=== PATIENT | female | born 1995 | race Caucasian/White ===

== ENCOUNTER 2016-11-22 12:10 | Observation (INO) | payer OTHER ==
[2016-11-22] MEDS ORDERED: Lorazepam 2 MG/ML VIAL ONE (12:38)
[2016-11-22] MEDS ORDERED: Metoclopramide HCl 10 MG/2 ML VIAL ONE (12:39)
[2016-11-22] MEDS ORDERED: Acetaminophen 500 MG TAB ONE (12:39)
[2016-11-22] MEDS ORDERED: diphenhydrAMINE HCl 50 MG/ML 1 ML VIAL ONE (12:39)
--- NOTE | 2016-11-22 13:36 | CT ---
CTA BRAIN: HISTORY: Severe headache. TECHNIQUE: Noncontrast enhanced CT images of the brain are obtained, followed by contrast enhanced CTA images, and 2D and 3D reconstructed images were performed on an independent 3D work station. FINDINGS: Images demonstrate no evidence of intracranial hemorrhage. The right and left internal carotid arteries are unremarkable. The right and left middle cerebral a rteries are unremarkable. In the A2 branches of the anterior cerebral artery, there appears to be an area of caliber change wi thin a few millimeters of its origin. This may represent a possible area of vasospasm. More distal ly, the JENNIFER vessels are unremarkable. There is an area of caliber change in the proximal and mid basilar artery. In addition, there is al so significant caliber change in the P2 segments of the posterior cerebral artery bilaterally. Thes e may represent additional areas of possible vasospasm. No evidence of aneurysms or hemorrhages seen. IMPRESSION: Anterior and posterior communicating artery areas of caliber change, possibly representing areas of vasospasm. Findings discussed with Dr. Wilkinson at 1:19 p.m. on 11/22/2016. CODE CR POS: [facility]
[2016-11-22 14:02] LABS: #Lymphocytes 1.1 thou/uL (1.20-3.40); #Monocytes 0.5 thou/uL (0.11-0.59); #Neutrophils 4.5 thou/uL (1.40-6.50); %Basophils 0.4 % (0.0-1.0); %Eosinophils 0.6 % (0.0-10.0); %Lymphocytes 17.5 % (21.0-51.0); Hematocrit 38.3 % (36.0-47.0); Mean Platelet Volume 7.5 fL (7.4-10.4); Red Blood Cell (RBC) Count 4.19 mill/uL (4.20-5.40); White Blood Cell (WBC) Count 6.1 thou/uL (4.8-10.8)
[2016-11-22 14:19] LABS: Anion Gap 13 mmol/L (10-20); BUN (Urea Nitrogen) 10 mg/dL (7.0-18.7); Calc. Creatinine Clearance 0 mL/min (70-130); Calcium 8.7 mg/dL (7.8-10.44); Carbon Dioxide 20 mmol/L (22-29); Chloride 106 mmol/L (98-107); Estimated GFR-MDRD Greater than 90
[2016-11-22 16:28] VITALS: BMI 19.4
[2016-11-22] MEDS ORDERED: Ondansetron ODT 4 MG TAB SL PRN (16:34)
[2016-11-22] MEDS ORDERED: Sodium Chloride 0.9% 1,000 ML IV SCH (16:34)
[2016-11-22] MEDS ORDERED: Ondansetron HCl/PF 4 MG/2 ML Vial IVP PRN (16:34)
[2016-11-22] MEDS ORDERED: ISOVUE-370 76%-LOCM 1 ML ONE (16:35)
[2016-11-22] MEDS ORDERED: FLU VACC QS2017-18 36 mo. & older 0.5 ML SYRINGE IM ONE (16:45)
[2016-11-22] MEDS ORDERED: diphenhydrAMINE HCl 50 MG/ML 1 ML VIAL IVP PRN (16:50)
[2016-11-22] MEDS ORDERED: HYDROcodone/Acetaminophen 5/325 mg Tablet PO PRN (16:50)
[2016-11-22] MEDS ORDERED: Calcium Carbonate 500 MG ChewTAB PO PRN (16:50)
[2016-11-22] MEDS ORDERED: Acetaminophen 325 MG TAB PO PRN (16:50)
[2016-11-22] MEDS: HYDROcodone/Acetaminophen 5/325 mg Tablet PO PRN ×2 (17:41→21:26)
[2016-11-22] MEDS: Sodium Chloride 0.9% 1,000 ML IV SCH (17:42)
--- NOTE | 2016-11-22 18:21 | HP ---
DATE OF OBSERVATION PLACEMENT: 11/22/2016 PRIMARY CARE PHYSICIAN: Toño mixon. REASON FOR OBSERVATION PLACEMENT: Headache. HISTORY OF PRESENT ILLNESS: Ms. Breana Small is a 21-year-old female with no significant past medi patricia history, who presents to the emergency room complaining of a headache, which initially began 3 d ays ago. She states that the headache is band-like in nature, radiating down to her neck. She stat es that pounding in nature, 8/10 at its worst. She states she has intermittently taken ibuprofen, w hich has helped her minimally. She denies any trauma to the head, denies any blurry vision or doubl e vision. She does have phonophobia and photophobia. No fevers have been noted. No numbness or ti ngling in any of her extremities. There have been no changes in sleep pattern, excessive caffeine u se. The patient then presented to the emergency room where she was given IV Reglan as well as Ativa n and intravenous fluids and Tylenol after which the headache mildly improved. She then underwent a CT [place] of [place] angio, which stated that there may be areas of vasospasm, particularly in the a nterior and posterior communicating arteries due to showing of areas of caliber change. She states she has never had this kind of pain before. There has been no history of aneurysms as a child. No family history of aneurysms. She denies any change in her urinary habits. She has been placed into observation onto the stroke floor for further evaluation. Currently, she still has a headache; how ever, this is mildly than her presentation. PAST MEDICAL HISTORY: Reviewed and noncontributory. PAST SURGICAL HISTORY: Reviewed and noncontributory. CODE STATUS: FULL CODE. SOCIAL HISTORY: The patient denies any cigarette use. She does smoke marijuana occasionally and sh e socially drinks. MEDICATIONS: Reviewed and none. ALLERGIES: SULFA and ZAIDA. FAMILY HISTORY: No history of aneurysms. Her great-grandmother had a CVA. REVIEW OF SYSTEMS: The following complete review of systems was negative, unless otherwise mentione d in the HPI or below: Constitutional: Weight loss or gain, sense of well-being, ability to conduct usual activities, exer cise tolerance. Skin/Breast: Rash, itching, changes in hair growth or loss, nail changes, breast lumps, tenderness, swelling, nipple discharge. Eyes: Vision, double vision, tearing, blind spots, pain. ENT/Mouth: Headaches (location, time of onset, duration, precipitating factors), vertigo, lighthead edness, injury. Vision, double vision, tearing, blind spots, pain, nose bleeding, colds, obstruction , discharge, dental difficulties, gingival bleeding, dentures, neck stiffness, pain, tenderness, mas ses in thyroid or other areas. Cardiovascular: Precordial pain, substernal distress, palpitations, syncope, dyspnea on exertion, o rthopnea, nocturnal paroxysmal dyspnea, edema, cyanosis, hypertension, heart murmurs, varicosities, phlebitis, claudication. Respiratory: Pain, shortness of breath, wheezing, stridor, cough, hemoptysis, fever or night sweats . Gastrointestinal: Poor appetite, dysphagia, indigestion, abdominal pain, heartburn, eructation, celia sea, vomiting, hematemesis, jaundice, constipation, or diarrhea, abnormal stools (ramon-colored, ankur y, bloody, greasy, foul smelling), flatulence, hemorrhoids, recent changes in bowel habits. Genitourinary: Urgency, frequency, dysuria, nocturia, hematuria, polyuria, oliguria, unusual (or ch elliott in) color of urine, stones, hesitancy, change in size of stream, dribbling, acute retention or incontinence, libido, potency. Musculoskeletal: Pain, swelling, redness or heat of muscles or joints, limitation, of motion, muscu lar weakness, atrophy, cramps. Neurologic/Psychiatric: Convulsions, paralyses, tremor, incoordination, paresthesias, difficulties with memory of speech, sensory or motor disturbances, or muscular coordination (ataxia, tremor), emo tional problems, anxiety, depression, previous psychiatric care, unusual perceptions, hallucinations . Allergy/Immunologic: Skin rash, anemia, bleeding tendency, polydipsia, polyuria, intolerance to hea t or cold. PHYSICAL EXAMINATION: CONSTITUTIONAL/VITAL SIGNS: Blood pressure 121/68, pulse is 70, temperature is 98.1, respirations a re 20, O2 saturation 98% on room air. GENERAL: She is nontoxic appearing. HEENT: Examination eyes show pupils that are reactive. Extraocular muscles are intact. Oral: Juan st oral mucosa. No lesions RESPIRATORY: Equal chest wall expansion. No wheezing, rhonchi, or rales. CARDIOVASCULAR: S1, S2 present. No murmurs, gallops or rubs. GASTROINTESTINAL: Soft, nontender, nondistended. Bowel sounds are present in all 4 quadrants. MUSCULOSKELETAL: Good range of motion in all 4 extremities. No clubbing, no cyanosis. LYMPHATICS: No swollen or painful cervical or axillary lymph nodes. NEUROLOGIC: She does have some neck stiffness; however, it is supple and has good range of motion. No meningeal signs. Pronator drift is absent. [id number] is intact. PSYCHIATRIC: Awake, alert, and oriented to time, place, person, answers questions appropriately. SKIN: Normal skin turgor. LABORATORY AND X-RAY FINDINGS: Laboratory values taken in the emergency room and reviewed by me roman wed WBC of 6.1, hemoglobin 13.0, hematocrit 38.3, platelet count 166,000. ESR is less than 1. Chem istry shows a CRP less than 0.5. Serum is negative. Sodium is 135, potassium 3.5, chlori de 106, carbon dioxide 20, anion gap 13, BUN is 10, creatinine 0.73. CT [place] of [place] angio with contrast revealed no evidence of intracranial hemorrhage, the right a nd left internal carotids are unremarkable. There is no evidence of aneurysm or hemorrhage is seen; however, there is an anterior and posterior communicating arteries with areas of caliber change, po ssibly representing areas of vasospasm. ASSESSMENT AND PLAN: Ms. Breana Small is a 21-year-old female with no significant past medical his tory, who presents to the emergency room complaining of a headache. 1. Headache, possibly secondary to cerebral vasospasm. At this time, the patient will be placed in observation onto the stroke floor. We will institute neuro checks. We will start the patient on I V fluids as well as some analgesics p.r.n. I spoke with the neurologist operational intelligence analyst who recommended get ting an MRI of the brain, as well as an MRV of the head to rule out venous sinus thrombosis. This w ill be performed stat and her further treatment options will be done based of these results. At thi s time, we would avoid any NSAIDS or any aspirin. 2. IV fluids. 3. Regular diet. 4. P.r.n. order set. 5. Full code. 6. Deep venous thrombosis prophylaxis. 7. I explained all this to the patient at bedside. I have also explained that she may require calc ium channel blockers for possible treatment; however, we will need CT results of her imaging first. 8. The patient's further hospital stay by her clinical course while here. I explained all this to the patient at bedside. She is agreeable to the plan of treatment. All questions have been answergustavo taylor
--- NOTE | 2016-11-22 19:47 | CON ---
DATE OF CONSULTATION: 11/22/2016 REASON FOR CONSULTATION: Severe intractable headache, neck stiffness. HISTORY OF PRESENT ILLNESS: Ms. Small is a pleasant 21-year-old female who has been cons idered for evaluation of severe intractable headache and neck stiffness. The patient reports that o n morning, she started noticing holocranial headache with nausea, vomiting, and neck stiffn ess. She continued to have headache, nausea and vomiting throughout the day on as well as Tuesday. She notes that the vomiting subsided on Tuesday. However, she continued to have severe 11/23 headache that was holocranial and radiated to the neck. She also felt neck stiffness. She was not able to move her neck side to side as it was causing severe pain. She also had photop hobia, phonophobia with headaches. There was no lightheadedness, dizziness, numbness, tingling, wea kness, dysarthria, dysphagia or difficulty with balance with this episode. She notes that the sympt oms continued to not improve, she decided to present to the [facility] for further ev aluation on today. On arrival here, she had a CT angiogram of the head done which showed vasospasms of the anterior and posterior communicating arteries. There was no evidence of aneurysm or hemorrh ages were seen. 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 She does complain of having noted increasing diaphoresis during this time. PAST MEDICAL HISTORY: None significant. PAST SURGICAL HISTORY: None significant. SOCIAL HISTORY: She denies smoking. She does report of alcohol use. She denies illicit drug use. She volunteers at a longterm. FAMILY HISTORY: Significant for mother, maternal grandmother and brother with a history of migraine s. CURRENT MEDICATIONS: None. ALLERGIES: Include SULFA DRUGS. REVIEW OF SYSTEMS: As mentioned above in history of present illness, otherwise negative. PHYSICAL EXAMINATION: VITAL SIGNS: Blood pressure of 121/68, pulse of 70, temperature of 98.1, respirations are 20, O2 sa ts of 98% on room air. GENERAL: Well-developed and well-nourished female in no apparent distress. RESPIRATORY: Clear to auscultation bilaterally. CARDIOVASCULAR: Regular rate and rhythm. NEUROLOGIC: Mental status: The patient is awake, alert, and oriented x3. Speech and language: Fl uent speech. Cranial nerves: Pupils are 3 mm and reactive. Visual lira are intact. External mu scles are intact. No nystagmus is noted. Face is symmetric. Tongue and uvula are midline. Motor exam showed normal tone and bulk with 5/5 strength in both upper and lower extremities. She does sierra ve positive Kernig sign and positive Brudzinski sign on the left lower extremity. Sensory: Sensati on is intact and symmetric. Deep tendon reflexes 2+ reflexes in both upper and lower extremities. Plantar response is flexion bilaterally. Coordination intact to [id number] tapping bilatera lly. LABORATORY DATA: Reviewed, which included CBC, BMP, CRP and urine test and sedimentation rate, which is significant for sodium 135, otherwise unremarkable. IMAGING STUDIES: CT angiogram of the head was reviewed, the findings are as noted on the HPI. IMPRESSION: 1. Severe intractable headache. 2. Vasospasm of intracranial arteries. 3. Neck stiffness. ASSESSMENT AND PLAN: Ms. Small is a pleasant 21-year-old female who presented with sever e intractable headaches since morning along with nausea, vomiting, neck stiffness, and diap horesis. I have reviewed her CT angiogram of the head results. I have discussed these findings wit h Dr. Delgado as well. At this time, I would recommend obtaining MRI brain with and without contrast and MRV head for further evaluation. I will also recommend obtaining lumbar puncture to rule out ce ntral intracranial hemorrhage that can cause her ongoing symptoms. I will give her a trial of Depac on IV 500 mg 12 hours x2 doses to see if that helps to alleviate her headaches. I will follow up results of MRI and MRV and provide further recommendations at that time. Thank you for your consultation.
[2016-11-22] MEDS: Valproate Sodium 500 MG in Sodium Chloride 0.9% 100 ML IVPB SCH (19:56)
--- NOTE | 2016-11-22 21:12 | MRI ---
MRI BRAIN: Date: 11-22-16 History: Sudden onset of severe headache. CTA earlier today demonstrated areas of caliber change in the region of the anterior cerebral artery as well as in the proximal mid basilar artery and P2 segm ent of the posterior cerebral artery bilaterally which may been related to basal spasm as reported o n that exam. FINDINGS: There is motion artifact present on several images which were repeated. No signal abnormality is see n throughout the brain. There is no evidence of an acute infarction. No signal abnormality is seen o n the gradient echo images to suggest an area of hemorrhage. There are no abnormal areas of enhancement after the administration of intravenous contrast. There i s an increased T2 with corresponding decreased T1 weighted signal intensity structure in the region of the pineal gland likely related to small pineal cyst. Septum pellucidum and third ventricle are o n the midline. Ventricular system is normal in size, shape, and position. The areas of decreased patricia iber involving the proximal A2 segments of each anterior cerebral artery are again seen as described on recent CT angiogram. The more mid and posterior aspects of the P2 segments of bilateral posterio r cerebral arteries are not well seen which is also likely related to areas of caliber change noted on the CT angiogram. There are mucous retention cysts seen in each maxillary antrum. Orbits and skull base have an otherw ise normal MRI appearance. IMPRESSION: 1. No acute intracranial abnormalities demonstrated. There is no evidence of an acute infarction or abnormal enhancement. 2. Pineal cyst. 3. Mild sinus disease. 4. Suggested caliber change involving the proximal aspects of A2 segments of each anterior cerebral artery as well as involving the posterior aspects of the P2 segments of the posterior cerebral arter ies which again could potentially be related to areas of vasospasm and are unchanged from prior exam and were better visualized and evaluated on prior CTA of the head. POS: [place]
--- NOTE | 2016-11-22 21:23 | MRI ---
MRV OF THE BRAIN: Date: 11-22-16 Technique: 2D [id number] images of the brain are obtained with 3D reformatted images provided. Comparison: MRI brain also obtained on this date. HISTORY: Headache and neck stiffness. FINDINGS: The inferior sagittal sinus is small in caliber but does appear patent. Superior sagittal sinus is a lso patent. There is asymmetry in the transverse and sigmoid sinus bilaterally which is probably dev elopmental. There is no evidence of occlusion of the dural venous sinuses. IMPRESSION: No findings to suggest occlusion of the dural venous sinuses. There is asymmetry in the sinuses whic h is likely developmental. POS: [facility]
[2016-11-23] MEDS: Cyclobenzaprine 10 MG TAB PO PRN ×2 (00:42→08:48)
[2016-11-23] MEDS: Sodium Chloride 0.9% 1,000 ML IV SCH ×3 (01:26→16:04)
[2016-11-23] MEDS: HYDROcodone/Acetaminophen 5/325 mg Tablet PO PRN (05:02)
[2016-11-23 05:03] LABS: #Eosinphils 0.1 thou/uL (0.0-0.7); #Lymphocytes 2.8 thou/uL (1.20-3.40); #Monocytes 0.5 thou/uL (0.11-0.59); #Neutrophils 2.7 thou/uL (1.40-6.50); %Basophils 0.6 % (0.0-1.0); %Eosinophils 2.2 % (0.0-10.0); %Lymphocytes 45.7 % (21.0-51.0); %Monocytes 7.8 % (0.0-10.0); Hematocrit 37.5 % (36.0-47.0); Mean Platelet Volume 7.8 fL (7.4-10.4); Red Blood Cell (RBC) Count 4.05 mill/uL (4.20-5.40); White Blood Cell (WBC) Count 6.2 thou/uL (4.8-10.8)
[2016-11-23 05:30] LABS: Anion Gap 9 mmol/L (10-20); BUN (Urea Nitrogen) 9 mg/dL (7.0-18.7); Calc. Creatinine Clearance 116 mL/min (70-130); Calcium 8.5 mg/dL (7.8-10.44); Carbon Dioxide 22 mmol/L (22-29); Chloride 110 mmol/L (98-107); Estimated GFR-MDRD Greater than 90
[2016-11-23 07:03] LABS: Amphetamine Not Detected (NotDetected); Methadone Not Detected (NotDetected); Methamphetamine Not Detected (NotDetected)
[2016-11-23 09:25] LABS: CSF, Glucose 55 mg/dl (40-70)
--- NOTE | 2016-11-23 09:27 | PDOC.PN ---
- Subjective Encounter Start Date: 11/23/16 Encounter Start Time: 07:00 -: old records requested/rev had lumbar puncture today, has severe neck pain and headache - Objective Resuscitation Status: Resuscitation Status FULL:Full Resuscitation MAR Reviewed: Yes Vital Signs & Weight: Vital Signs (12 hours) Temp Pulse Resp BP Pulse Ox 11/23/16 08:00 98.1 F 63 14 104/65 98 11/23/16 04:25 98.0 F 82 18 125/80 98 11/23/16 00:05 98.1 F 68 16 136/73 98 Weight Weight 128 lb I&O: 11/22/16 11/23/16 11/24/16 06:59 06:59 06:59 Intake Total 340 Output Total 1 Balance 339 Result Diagrams: 11/23/16 04:51 11/23/16 04:51 Radiology Reviewed by me: Yes EKG Reviewed by me: Yes Phys Exam - Physical Examination Constitutional: NAD HEENT: PERRLA, moist MMs, sclera anicteric neck sprain Respiratory: no wheezing, no rales, no rhonchi Cardiovascular: RRR, no significant murmur, no rub Gastrointestinal: soft, non-tender, no distention, positive bowel sounds Musculoskeletal: no edema, pulses present Neurological: non-focal, normal sensation, moves all 4 limbs Psychiatric: normal affect, A&O x 3 Skin: no rash, normal turgor Dx/Plan (1) Cannabis abuse Code(s): F12.10 - CANNABIS ABUSE, UNCOMPLICATED Status: Acute (2) Cerebral vasospasm Code(s): I67.848 - OTHER CEREBROVASCULAR VASOSPASM AND VASOCONSTRICTION Status : Acute (3) Intractable headache Code(s): R51 - HEADACHE Status: Acute (4) Neck pain, acute Code(s): M54.2 - CERVICALGIA Status: Acute - Plan cont current plan of care * medication reviewed as below * symptomatic treatment * CSF is normal * MRA, MRI reviewed and neurology recommendation noted * will add toradol for pain control * expecting discharge later today once feels better. Review of Systems - Review of Systems Constitutional: negative: Fever, Chills, Sweats, Weakness, Malaise, Other Eyes: negative: Pain, Vision Change, Conjunctivae Inflammation, Eyelid Inflammation, Redness, Other ENT: negative: Ear Pain, Ear Discharge, Nose Pain, Nose Discharge, Nose Congestion, Mouth Pain, Mouth Swelling, Throat Pain, Throat Swelling, Other Respiratory: negative: Cough, Dry, Shortness of Breath, Hemoptysis, SOB with Excertion, Pleuritic Pain, Sputum, Wheezing Cardiovascular: negative: Chest Pain, Palpitations, Orthopnea, Paroxysmal Noc. Dyspnea, Edema, Light Headedness, Other Gastrointestinal: negative: Nausea, Vomiting, Abdominal Pain, Diarrhea, Constipation, Melena, Hematochezia, Other Genitourinary: negative: Dysuria, Frequency, Incontinence, Hematuria, Retention , Other Musculoskeletal: Neck Pain - Medications/Allergies Allergies/Adverse Reactions: Allergies Allergy/AdvReac Type Severity Reaction Status Date / Time Sulfa (Sulfonamide Allergy Verified 11/22/16 16:28 Antibiotics) Medications: Current Medications Acetaminophen (Tylenol) 650 mg PO Q4H PRN PRN Reason: Headache/Fever or Pain Last Admin: 11/22/16 19:52 Dose: 650 mg Hydrocodone Bitart/Acetaminophen ([place] 5/325) 1 tab PO Q4H PRN PRN Reason: Moderate Pain (4-6) Hydrocodone Bitart/Acetaminophen ([place] 5/325) 2 tab PO Q4H PRN PRN Reason: Severe Pain (7-10) Last Admin: 11/23/16 05:02 Dose: 2 tab Calcium Carbonate (Tums) 1,000 mg PO Q4H PRN PRN Reason: Heartburn or Indigestion Cyclobenzaprine HCl (Flexeril) 10 mg PO Q8H PRN PRN Reason: Muscle Spasm Last Admin: 11/23/16 08:48 Dose: 10 mg Diphenhydramine HCl (Benadryl) 25 mg IVP Q4H PRN PRN Reason: Itching Sodium Chloride (Normal Saline 0.9%) 1,000 mls @ 125 mls/hr IV .Q8H [facility] Last Admin: 11/23/16 05:46 Dose: 1,000 mls Valproic Acid 500 mg/ Sodium (Chloride) 105 mls @ 100 mls/hr IVPB Q12HR [facility] Stop: 11/23/16 10:02 Last Admin: 11/22/16 19:56 Dose: 105 mls Ketorolac Tromethamine (Toradol) 30 mg IVP Q6H [facility] Stop: 11/28/16 10:01 Sodium Chloride (Flush - Normal Saline) 10 ml IVF Q12HR [facility] Sodium Chloride (Flush - Normal Saline) 10 ml IVF PRN PRN PRN Reason: Saline Flush
[2016-11-23] MEDS: Valproate Sodium 500 MG in Sodium Chloride 0.9% 100 ML IVPB SCH (09:37)
[2016-11-23] MEDS: Ketorolac Tromethamine 30 MG/ML VIAL IVP SCH ×2 (09:39→16:03)
--- NOTE | 2016-11-23 10:35 | RAD ---
LUMBAR PUCTURE: History: Headache and neck stiffness. Comparison: None. Exposure: 0.4 minutes, 107.0 mGy*cm\S\2. FINDINGS: Lumbar puncture for acquisition of CSF fluid. Total of 10 cc of clear CSF was obtained. There are no immediate or post procedure complications. Opening pressure is 32 cm or water. Technique: Consent was obtained to perform lumbar puncture. Patient's back was evaluated. The L2-3 level was de emed appropriate. Skin was prepped and draped in sterile fashion. 1% Lidocaine, buffered with sodium bicarbonate used for local anesthesia. Under fluoroscopic guidance, micropuncture needle was used t o access the CSF space. Inter stylet was removed. Opening pressure was obtained. A total of 10 cc of clear CSF was collected. There were no immediate or post procedure complications. IMPRESSION: Successful lumbar puncture. Opening pressure of 32 cm of water. POS: [facility]
--- NOTE | 2016-11-23 10:43 | DIS ---
DATE OF ADMISSION: 11/22/2016 DATE OF DISCHARGE: 11/23/2016 PRIMARY CARE PHYSICIAN: [facility] call admission. DISCHARGE DISPOSITION: Home. PRIMARY DISCHARGE DIAGNOSES: 1. Intractable headache due to vasospasm. 2. Neck pain due to neck sprain. SECONDARY DISCHARGE DIAGNOSIS: Intermittent cannabis abuse. PRIMARY PROCEDURE/OPERATION: Lumbar puncture. RADIOLOGICAL INVESTIGATION: CT [place] showed anterior and posterior communicating artery with caliber change suggestive of vasospasm. MRI brain negative for any acute intracranial process. MR angio negative for any dural sinus thrombosis, but it did show some caliber change. SIGNIFICANT LABORATORY DATA: CBC normal. ESR less than 1. BMP normal. CRP less than 0.5. Pregna ncy test negative. CSF picture is normal. Urine drug screen positive for opiates, benzos, and todd abinoids. DISCHARGE MEDICATION: Ibuprofen 400 mg p.o. q.6 hourly p.r.n. CONTRAINDICATIONS: None. CODE STATUS: FULL CODE. INPATIENT CONSULTANTS: Dr. Johnny Russell saw this patient. TEST RESULTS PENDING ON DISCHARGE: None. ALLERGIES: SULFA DRUGS. DISCHARGE PLAN: Post hospital, the patient is advised to follow up with Dr. Johnny Russell for headache , primary care physician. HOSPITAL COURSE: A 21-year-old female who was admitted by Dr. Hedrick, please see his H\T\P for furth er details. The patient mainly came to emergency room for headache which was diffuse and predominan tly lower part of head as well as neck pain. In the emergency room, CT [place] showed some caliber change in the anterior and posterior communicating artery, which was consistent with vasosp asm and that was contributing to her headache. She was also having neck pain which was related with neck sprain, we started Toradol and Flexeril while in hospital. At this point, the CSF is complete ly normal. All investigation is also unremarkable and as long as Neurology is okay, then we will co nsider discharging her home later on today with oral medications. By the time of discharge, HSV PCR from CSF is pending and CSF VDRL results are pending. The patient was given a trial of Depakote 500 mg IV twice daily, but that did not change her headache.
[2016-11-23 16:36] VITALS: BP 113/71; TEMP 98.4
--- NOTE | 2016-11-24 08:51 | PRG ---
DATE OF SERVICE: 11/23/2016 SUBJECTIVE: Ms. Small reports of some improvement in her headache and neck pain. She notes that h er headaches is completely gone. She continues to have some neck pain, but it is milder compared to yesterday. She did have a lumbar puncture for which results were essentially normal. PHYSICAL EXAMINATION: VITAL SIGNS: Blood pressure of 113/71, pulse of 82, temperature of 98.4, respirations of 18, O2 sat s of 99% on room air. GENERAL: Well-developed, well-nourished female in no apparent distress. RESPIRATORY: Clear to auscultation bilaterally. CARDIOVASCULAR: Regular rate and rhythm. NEUROLOGIC: Essentially unchanged compared to yesterday except there is no Kernig or Babinski noted today compared to yesterday. LABORATORY DATA: Reviewed, which included CSF studies, CSF WBC 1, RBC of 0, glucose of 55, protein 23. Gram stain and cultures were negative. ASSESSMENT AND PLAN: 1. Intractable headache, likely intractable migraine. 2. Vasospasms noted on the CT angiogram. 3. Neck pain. Ms. Small is a pleasant 21-year-old female who presented with a severe intractable headac he, nausea, vomiting and neck pain and neck stiffness. She had a CT angiogram of the head done whic h showed vasospasms of anterior and posterior cerebral artery. She did have a lumbar puncture done which are essentially normal. She also had MRV of the head done which showed no sign of . 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 Ms. Small is a pleasant patient with symptoms sugesstive of migraine heada neli that brought her to the hospital. I have discussed with the patient and the patient's mother wa s present at bedside that she needs to be started on Amerge 2.5 mg as needed for breakthrough headac he. Since she does not have frequent headaches, I have not started her on any preventive therapy. She will follow up with her neurologist as an outpatient. She will also be referred to a neurosurge on as an outpatient for pineal cyst evaluation as to evaluate whether she needs for vasospasm s noted on the CT angiogram. The patient is okay to be discharged home from a neurology standpoint.
[2016-11-27 10:14] LABS: HSV 1 - DNA Negative (Negative)
== END 2016-11-23 19:36 | disposition home or self-care (01) ==
LOC: ERS 12:10 → 2SE 13:49
PROVIDERS: ADMIT Hospitalist; ATTEND Hospitalist
DX: I67.848 Other cerebrovascular vasospasm and vasoconstriction (principal); R51 Headache; F12.10 Cannabis abuse, uncomplicated; M54.2 Cervicalgia; Z88.2 Allergy status to sulfonamides; Z91.048 Other nonmedicinal substance allergy status
CPT/HCPCS: 36415; 62270; 70496; 70544; 70553; 80048; 80306; 82945; 84157; 84703; 85025; 85652; 86140; 86592; 87070; 87205; 87529; 89051; 96361; 96365; 96367; 96375; 96376; G0378; J1200; J1885; J2060; J2765; J7050

== ENCOUNTER 2018-11-29 12:37 | Emergency (ER) | payer OTHER, SELFPAY ==
--- NOTE | 2018-11-29 15:11 | CT ---
CT BRAIN WITHOUT CONTRAST: HISTORY: Headache FINDINGS: No evidence of acute infarct, hemorrhage, midline shift or abnormal extra-axial fluid collections is seen. The ventricular size is appropriate and the basilar cisterns are patent. The bony calvarium is intact. The visualized paranasal sinuses and mastoid air cells are well aerated. IMPRESSION: No CT evidence of acute intracranial process.
[2018-11-29] MEDS ORDERED: Metoclopramide HCl 10 MG/2 ML VIAL ONE (15:23)
[2018-11-29] MEDS ORDERED: Ketorolac Tromethamine 30 MG/ML VIAL ONE (15:23)
[2018-11-29] MEDS ORDERED: diphenhydrAMINE 50 MG/ML VIAL ONE (15:23)
[2018-11-29 15:32] LABS: #Eosinphils 0.1 thou/uL (0.0-0.7); #Lymphocytes 2.3 thou/uL (1.20-3.40); #Monocytes 0.5 thou/uL (0.11-0.59); #Neutrophils 3.9 thou/uL (1.40-6.50); %Basophils 0.5 % (0.0-1.0); %Eosinophils 1.4 % (0.0-10.0); %Lymphocytes 33.3 % (21.0-51.0); %Monocytes 7.7 % (0.0-10.0); %Neutrophils 57.2 % (42.0-75.0); Hemoglobin 12.4 g/dL (12.0-16.0); Mean Corpuscular HGB CONC 34.1 g/dL (32.0-36.0); Mean Corpuscular Hemoglobin 31.3 pg (27.0-31.0); Mean Corpuscular Volume 91.6 fL (78.0-98.0); Mean Platelet Volume 8.8 fL (7.4-10.4); Platelet Count 159 thou/uL (130-400); Red Blood Cell (RBC) Count 3.98 mill/uL (4.20-5.40); White Blood Cell (WBC) Count 6.8 thou/uL (4.8-10.8)
[2018-11-29 15:51] LABS: BHCG - Serum Negative (NEGATIVE); Pregs Control Background? CLEAR/WHITE (CLR/WHITE); Pregs Control Bar Appear? YES (CONTROL BAR)
[2018-11-29 15:59] LABS: ALT (SGPT) 37 U/L (8-55); AST (SGOT) 31 U/L (5-34); Albumin 4.3 g/dL (3.5-5.0); Alkaline Phosphatase 47 U/L (40-110); Anion Gap 13 mmol/L (10-20); BUN (Urea Nitrogen) 7 mg/dL (7.0-18.7); Bilirubin, Total 0.4 mg/dL (0.2-1.2); Calc. Creatinine Clearance 0 mL/min (70-130); Calcium 9.3 mg/dL (7.8-10.44); Carbon Dioxide 22 mmol/L (22-29); Chloride 108 mmol/L (98-107); Estimated GFR-MDRD Greater than 90; Globulin 3.1 g/dL (2.4-3.5); Glucose 83 mg/dL (70-105); Potassium 4.8 mmol/L (3.5-5.1); Protein, Total 7.4 g/dL (6.0-8.3); Sodium 138 mmol/L (136-145)
== END 2018-11-29 16:53 | disposition home or self-care (01) ==
LOC: ERS 12:37
DX: G43.909 Migraine, unspecified, not intractable, without status migrainosus (principal); F41.9 Anxiety disorder, unspecified; F17.210 Nicotine dependence, cigarettes, uncomplicated
CPT/HCPCS: 70450; 80053; 84703; 85025; 96365; 96375; J1200; J1885; J2765

== ENCOUNTER 2019-08-21 10:47 | Emergency (ER) | payer OTHER, SELFPAY ==
[2019-08-22 13:47] LABS: SARS-CoV-2 MS2 Positive; SARS-CoV-2 N Gene Negative; SARS-CoV-2 S Gene Negative; SARS-CoV-2 orf1ab Negative
== END 2019-08-21 11:57 | disposition home or self-care (01) ==
LOC: ERS 10:47
DX: Z20.828 Contact with and (suspected) exposure to other viral communicable diseases (principal); F41.9 Anxiety disorder, unspecified; F17.210 Nicotine dependence, cigarettes, uncomplicated
CPT/HCPCS: 87635; 99283; U0003

== ENCOUNTER 2021-12-21 16:45 | Emergency (ER) | payer SELFPAY ==
[2021-12-21 18:01] LABS: SARS-CoV-2 NAA Rapid Test Not Detected (NotDetected)
== END 2021-12-21 18:55 | disposition home or self-care (01) ==
LOC: ERS 16:45
DX: B34.9 Viral infection, unspecified (principal); Z20.822 Contact with and (suspected) exposure to COVID-19; Z87.891 Personal history of nicotine dependence
CPT/HCPCS: 99283